=== PATIENT | male | born 1985 ===

== ENCOUNTER 2020-05-10 00:34 | Outpatient (CLI) | payer OTHER, SELFPAY ==
[2020-05-10 18:03] LABS: SARS-CoV-2 RNA PCR Negative
== END 2020-05-10 00:35 | disposition home or self-care (01) ==
PROVIDERS: Visit Provider Surgery Plastic and Reconstructive Surgery
DX: Z01.812 Encounter for preprocedural laboratory examination (principal); Z20.828 Contact with and (suspected) exposure to other viral communicable diseases
CPT/HCPCS: 87635; C9803; U0003

== ENCOUNTER 2020-05-13 00:47 | Day surgery (SDC) | payer OTHER, SELFPAY ==
[2020-05-06 09:53] VITALS: BMI 33.2
[2020-05-13] VITALS (16 sets, daily range): BP systolic 127–180; BP diastolic 86–114; PULSE 51–99; RESP 12–17; TEMP 36.1–36.2; O2SAT 95–100
[2020-05-13 08:13] LABS: Urine Cotinine NEGATIVE
[2020-05-13] MEDS: LACTATED RINGERS 1,000 ML 30 ML IV CONT ×2 (08:16→12:28)
--- NOTE | 2020-05-13 08:43 | P.PNAN_ITS ---
Anes - Initial Pre Proc Eval Procedure: Operation Date: 05/13/20 09:30 Proposed Procedures p Treatment Of Gynecomastia, Excision And Liposuction - Demetris Stewart MD Date/Time: 05/13/20 08:43 Surgeon: Demetris Stewart MD Pre Op Diagnosis: gynecomastia Patient Data Age: 35 Gender: M Height: 6 ft Weight: 111.7 kg Last Vital Signs Temp 97.1 F L 05/13/20 07:49 Pulse 71 05/13/20 07:49 Resp 16 05/13/20 07:49 BP 127/86 05/13/20 07:49 Pulse Ox 98 05/13/20 07:49 Allergies Allergy/AdvReac Type Severity Reaction Status Date / Time No Known Allergies Allergy Verified 05/07/20 11:34 Home Medications Medication Instructions Recorded Confirmed Type docusate sodium 100 mg capsule 100 mg PO BID #14 cap 05/07/20 05/13/20 Rx hydrocodone 5 mg-acetaminophen 325 1 tablet PO Q6H PRN #15 tablet 05/07/20 05/13/20 Rx mg tablet ondansetron HCl 4 mg tablet 4 mg PO Q6H #30 tablet 05/07/20 05/13/20 Rx Laboratory Tests 05/13/20 07:56 Cotinine Negative Patient hx anesthesia problems: none Family hx anesthesia problems: none PMFSH Social History Social History Smoking status: Never smoker Alcohol intake: current Substance use: never Spiritual care concerns: No Anes - Eval Final PreProcedure Day of Procedure 05/13/20 08:43 Patient weight: overweight Heart: regular rate and rhythm Lungs: clear to auscultation Airway: Mallampati scale class II Neurological: alert and oriented Last oral intake: >/= 8 hours ASA classification: II Emergent: no Anesthetic plan: proceed Anesthesia type and monitoring: general LMA and standard monitoring Informed Consent: The patient's anesthetic plan and its attendant risks and benefits were discussed with the patient/family/POA. Questions were solicited and answers provided to the satisfaction of the patient/family/POA.
--- NOTE | 2020-05-13 09:46 | WPDHPUPDATE1 ---
History and Physical Update Update Date/Time: 05/13/20 09:46 History and Physical has been reviewed, including an updated exam of the patient. There are NO changes in the patient's condition. Risks, benefits, and alternatives have been discussed and questions answered. Patient agrees to proceed with procedure.
--- NOTE | 2020-05-13 10:03 | PM.PROC ---
Procedure Note - Detailed Date of procedure: 05/13/20 Pre-op diagnosis: gynecomastia Post-op diagnosis: same Procedure performed: Mastectomy for gynecomastia Description of procedure: He was marked in the preoperative holding area with his verification. Risks, benefits, alternatives discussed. We discussed realistic expectations of outcome. All questions answered to his satisfaction and consent obtained. He was taken to the operating room placed supine on the operating room table. Anesthesia was provided by anesthesiology and prepped and draped in a standard sterile fashion. Surgical time-out was taken. Stab incisions were made and I used a tumescent solution. Fifteen blade used to make an incision along the inferior aspect of the areola. Dissection was continued until the breast tissue was identified this was completely resected. I then tacked this into place and proceeded using S.A.F.E. technique of suction lipectomy with a 4 mm basket cannula until a good contour. Areola was closed with 2-0 Vicryl followed by 3-0 Monocryl in a running subcuticular 4-0 Monocryl. Port sites with 4-0 nylon single suture. Topifoam and Cale wrap were used for final dressing. Anesthesia: GLMA Surgeon: Demetris Stewart MD Estimated blood loss (mL): 10 Drains: No Packing: No Pathology: none sent Complications: No immediate complications Condition: stable Disposition: PACU Findings: 700 cc total volume of lipoaspirate
--- NOTE | 2020-05-13 10:06 | SUR.PREOP ---
0930-PT INFORMED SURGEON DELAYS SELF ~45-60 MINUTES.
[2020-05-13] MEDS: ceFAZolin 2 GM/D5W 50 ML 2 GM/50 ML BAG IVPB (10:27)
[2020-05-13] MEDS: hydrALAZINE HCL 20 MG/ML VIAL 5 MG IV PUSH (13:58)
--- NOTE | 2020-05-13 15:50 | SUR.PHASEI ---
Dr. Guthrie aware of patient's BP and is ok sending patient home without further treatment.
== END 2020-05-13 16:18 | disposition home or self-care (01) ==
PROVIDERS: Visit Provider Surgery Plastic and Reconstructive Surgery
PROC: (CPT 19300; principal; 2020-05-13 09:30)
DX: N62 Hypertrophy of breast (principal)
CPT/HCPCS: 19300; 15877; 80307; A9270; J0171; J0360; J0690; J1100; J1170; J2250; J2405; J2704; J3010; J7120